=== PATIENT | male | born 1995 | race Two or more races ===

== ENCOUNTER 2023-05-12 11:28 | Emergency (ER) | payer MEDICAID, OTHER ==
[~2023-05-12] VITALS: Ht 175.3 cm; Wt 52.5 kg
[2023-05-12 12:39] VITALS: BP 123/75
[2023-05-12] MEDS ORDERED: HYDROcodone-ACET 10/325MG TAB PO ONE (13:45)
[2023-05-12] MEDS ORDERED: ONDANSETRON ODT 4 MG TAB PO ONE (13:45)
[2023-05-12] MEDS ORDERED: HYDR1TAB97 PO (14:24)
== END 2023-05-12 14:40 | disposition home or self-care (01) ==
LOC: ER 11:28
DX: S42.202A Unspecified fracture of upper end of left humerus, initial encounter for closed fracture (principal); X58.XXXA Exposure to other specified factors, initial encounter; Y93.89 Activity, other specified; Y92.89 Other specified places as the place of occurrence of the external cause; Y99.8 Other external cause status
CPT/HCPCS: 73030; 73060; 99284; Q0162